=== PATIENT | female | born 1970 | race Two or more races ===

== ENCOUNTER 2017-08-24 10:37 | Emergency (ER) | payer MEDICAID ==
[~2017-08-24] VITALS: Ht 165.1 cm; Wt 68.0 kg
[2017-08-24 11:45] VITALS: BP 118/89
[2017-08-24] MEDS ORDERED: KETOROLAC TROMETH 60MG/2ML VIAL IM ONE (12:30)
[2017-08-24] MEDS ORDERED: ACETAMINOPHEN 325 MG TAB PO ONE (12:30)
== END 2017-08-24 14:03 | disposition home or self-care (01) ==
LOC: ER 10:37
DX: R51 Headache (principal); R05 Cough; F17.210 Nicotine dependence, cigarettes, uncomplicated; R20.0 Anesthesia of skin; Z98.890 Other specified postprocedural states
CPT/HCPCS: 70450; 71046; 96372; 99284; J1885

== ENCOUNTER 2018-05-17 14:05 | Inpatient (IN) | payer MEDICAID ==
[~2018-05-17] VITALS: Ht 165.1 cm; Wt 79.2 kg
[2018-05-17] MEDS ORDERED: SODIUM CHLORIDE 0.9% 1,000 ML IVB ONE (14:10)
[2018-05-17] MEDS ORDERED: LORazepam 2MG/ML-1ML VIAL IV ONE ×2 (14:15→18:15)
[2018-05-17 14:26] LABS: Basophils # (auto) 0 uL; Basophils % (auto) 0.4 % (0.0-2.0); Eosinophils # (auto) 0.2 uL; Eosinophils % (auto) 3.2 % (0.0-7.0); Hematocrit 37.7 % (36.0-46.0); Hemoglobin 12.9 g/dL (12.2-16.2); Lymphocytes # (auto) 2.4 uL; Lymphocytes % (auto) 36.9 % (10.0-50.0); Mean Corpuscular Hemoglobin 33.1 pg (28.0-32.0); Mean Corpuscular Hgb Conc. 34.3 g/dL (32.0-36.0); Mean Corpuscular Volume 96.7 fL (80.0-100.0); Monocytes # (auto) 0.4 uL; Monocytes % (auto) 5.8 % (0.0-12.0); Neutrophils # (auto) 3.4 uL; Neutrophils % (auto) 53.7 % (37.0-80.0); Nucleated Red Blood Cells % 0.2 %; Platelet Count (auto) 213 10^3/uL (140-450); Red Cell Distribution Width 13.8 % (11.8-14.3); White Blood Cell 6.4 10^3/uL (4.4-10.8)
[2018-05-17 14:44] LABS: Alanine Aminotransferase 23 U/L (13-56); Albumin 3.5 g/dL (3.4-5.0); Alkaline Phosphatase 87 U/L (45-117); Anion Gap 4 (5-15); Aspartate Aminotransferase 8 U/L (15-37); Bilirubin, Total 0.3 mg/dL (0.2-1.0); Blood Alcohol < 3.0 mg/dL (0-5); Blood Urea Nitrogen 21 mg/dL (7-18); Calcium 8.3 mg/dL (8.5-10.1); Carbon Dioxide 24 mmol/L (21-32); Chloride 113 mmol/L (98-107); GFR African American 93 mL/min; GFR Non-African American 77 mL/min; Glucose 86 mg/dL (74-106); Potassium 3.7 mmol/L (3.5-5.1); Sodium 141 mmol/L (136-145)
[2018-05-17] MEDS ORDERED: HYDROcodone-ACET 10/325MG TAB PO ONE (17:15)
[2018-05-17] MEDS ORDERED: HYDROcodone-ACET 5/325MG TAB PO PRN ×2 (17:45→18:30)
[2018-05-17] MEDS: METHYLPREDNISOLONE 4 MG TAB PO SCH ×2 (18:00→23:28)
[2018-05-17] MEDS ORDERED: MORPHINE SULFATE 4 MG/ML SYR/VIAL IV PRN (18:00)
[2018-05-17] MEDS ORDERED: TEMAZEPAM 15 MG CAP PO PRN (18:00)
[2018-05-17] MEDS ORDERED: NITROGLYCERIN 0.4 MG SL TAB SL PRN (18:00)
[2018-05-17] MEDS ORDERED: ONDANSETRON HCL 4 MG/2 ML VIAL IV PRN (18:00)
[2018-05-17] MEDS ORDERED: guaiFENesin-DM 100/10mg/5ml SYR PO PRN (18:00)
[2018-05-17] MEDS ORDERED: traMADol HCL 50 MG TAB PO PRN ×2 (18:00→18:30)
[2018-05-17] MEDS ORDERED: DOCUSATE SOD 100 MG CAP PO PRN (18:00)
[2018-05-17] MEDS ORDERED: cloNIDine HCL 0.1 MG TAB PO PRN (18:00)
[2018-05-17] MEDS ORDERED: LORazepam 2MG/ML-1ML VIAL ONE (18:08)
[2018-05-17] MEDS: MORPHINE SULFATE 4 MG/ML SYR/VIAL IV PRN (18:36)
[2018-05-17 19:17] LABS: Urine Bacteria FEW /hpf (None Seen); Urine Blood Negative /uL (Negative); Urine Mucus FEW (None Seen); Urine Specific Gravity 1.014 (1.001-1.035); Urine WBC 35 /hpf (0 - 5)
[2018-05-17 19:32] LABS: Alcohol, Urine < 3.0 mg/dL (0-5); Amphetamine Screen, Urine NEGATIVE (NEGATIVE); Barbiturate Scree,Urine NEGATIVE (NEGATIVE); Benzodiazephine Screen, Urine POSITIVE (NEGATIVE); Cannabinoid Screen, Urine POSITIVE (NEGATIVE); Cocaine Screen, Urine NEGATIVE (NEGATIVE); Opiate Scree,Urine POSITIVE (NEGATIVE); Phencyclidine Screen, Urine NEGATIVE (NEGATIVE)
[2018-05-17 21:04] VITALS: BP 118/78
[2018-05-17 22:00] VITALS: BP 118/79
[2018-05-17] MEDS: FLUTICASONE PROP NASAL SPR 0.05 % (50MCG) 16GM EACHNOSTRI SCH (22:00)
[2018-05-17] MEDS: NITROFURANTOIN (MONO) 100 mg CAP PO SCH (23:14)
[2018-05-17] MEDS: LEVETIRACETAM 500 MG TAB PO SCH (23:14)
[2018-05-17] MEDS: TOPIRAMATE 25 MG TAB PO SCH (23:14)
[2018-05-17] MEDS: FAMOTIDINE 20 MG TAB PO SCH (23:15)
[2018-05-17] MEDS: SODIUM CHLOR 0.9% PF (SALINE LOCK) 10ML VIAL/SYR IV SCH (23:21)
[2018-05-17] MEDS ORDERED: QUEtiapine FUMARATE 100 MG TAB PO ONE (23:30)
[2018-05-18] MEDS: LORazepam 2MG/ML-1ML VIAL IV PRN ×2 (00:27→13:12)
[2018-05-18] MEDS: ZOLPIDEM TARTRATE 5 MG TAB PO PRN ×2 (00:59→21:39)
[2018-05-18] MEDS ORDERED: KEP500T PO (04:28)
[2018-05-18] MEDS ORDERED: HYDR-531 PO (04:28)
[2018-05-18] MEDS ORDERED: ALPR1TAB7 PO (04:28)
[2018-05-18] MEDS ORDERED: TIZA4TAB9 PO (04:28)
[2018-05-18] MEDS ORDERED: QUET50TA PO (04:28)
[2018-05-18] MEDS ORDERED: FLUO-125 PO (04:28)
[2018-05-18] MEDS ORDERED: TOPI25CA5 PO (04:28)
[2018-05-18] MEDS ORDERED: ZOLP10TA6 PO (04:28)
[2018-05-18] MEDS ORDERED: CLON1TAB4 PO (04:28)
[2018-05-18 05:17] VITALS: BP 150/83
[2018-05-18] MEDS: METHYLPREDNISOLONE 4 MG TAB PO SCH ×4 (06:00→23:40)
[2018-05-18] MEDS: SODIUM CHLOR 0.9% PF (SALINE LOCK) 10ML VIAL/SYR IV SCH ×3 (06:00→22:20)
[2018-05-18 07:08] LABS: Basophils # (auto) 0 uL; Basophils % (auto) 0.7 % (0.0-2.0); Eosinophils # (auto) 0.2 uL; Eosinophils % (auto) 3.7 % (0.0-7.0); Lymphocytes # (auto) 2.2 uL; Lymphocytes % (auto) 41.7 % (10.0-50.0); Mean Corpuscular Hemoglobin 32.6 pg (28.0-32.0); Mean Corpuscular Hgb Conc. 34.2 g/dL (32.0-36.0); Mean Corpuscular Volume 95.3 fL (80.0-100.0); Monocytes # (auto) 0.4 uL; Monocytes % (auto) 7.1 % (0.0-12.0); Neutrophils # (auto) 2.5 uL; Neutrophils % (auto) 46.8 % (37.0-80.0); Nucleated Red Blood Cells % 0.1 %; Platelet Count (auto) 216 10^3/uL (140-450); Red Blood Cells 3.99 10^6/uL (4.0-5.20); Red Cell Distribution Width 13.5 % (11.8-14.3); White Blood Cell 5.3 10^3/uL (4.4-10.8)
[2018-05-18 07:29] LABS: Albumin 3.5 g/dL (3.4-5.0); BUN/Creatinine Ratio 17.9; Calcium 8.4 mg/dL (8.5-10.1); Potassium 3.9 mmol/L (3.5-5.1)
[2018-05-18 07:31] LABS: Bilirubin, Total 0.2 mg/dL (0.2-1.0); Total Protein 7.2 g/dL (6.4-8.2)
[2018-05-18 08:00] VITALS: BP 136/85
[2018-05-18] MEDS: NITROFURANTOIN (MONO) 100 mg CAP PO SCH ×2 (09:21→20:38)
[2018-05-18] MEDS: FAMOTIDINE 20 MG TAB PO SCH ×2 (09:23→20:38)
[2018-05-18] MEDS: MULTIPLE VITAMIN TAB PO SCH (09:23)
[2018-05-18] MEDS: AZITHROMYCIN 250 MG TAB PO SCH (09:24)
[2018-05-18] MEDS: LEVETIRACETAM 500 MG TAB PO SCH ×2 (09:25→20:38)
[2018-05-18] MEDS: QUEtiapine FUMARATE 100 MG TAB PO SCH ×2 (09:25→20:39)
[2018-05-18] MEDS: CYANOCOBALAMIN 500 MCG TAB PO SCH (09:27)
[2018-05-18] MEDS: TOPIRAMATE 25 MG TAB PO SCH ×2 (09:27→20:38)
[2018-05-18] MEDS: FLUTICASONE PROP NASAL SPR 0.05 % (50MCG) 16GM EACHNOSTRI SCH ×2 (10:00→22:20)
[2018-05-18] MEDS: HYDROcodone-ACET 10/325MG TAB PO PRN ×2 (11:46→22:20)
[2018-05-18 12:42] VITALS: BP 137/98
[2018-05-18] MEDS: MORPHINE SULFATE 4 MG/ML SYR/VIAL IV PRN (16:14)
[2018-05-18 17:17] VITALS: BP 124/81
[2018-05-18] MEDS: NICOTINE 14 MG/24HR TOPICAL PATCH TD SCH (17:38)
[2018-05-18] MEDS: LORazepam 0.5 MG TAB PO PRN (18:42)
[2018-05-18 22:00] VITALS: BP 132/88
[2018-05-19] MEDS: ACETAMINOPHEN 325 MG TAB PO PRN ×2 (00:52→05:20)
[2018-05-19] MEDS: LORazepam 0.5 MG TAB PO PRN ×3 (02:24→20:45)
[2018-05-19] MEDS: MORPHINE SULFATE 4 MG/ML SYR/VIAL IV PRN ×3 (02:24→17:52)
[2018-05-19] MEDS: HYDROcodone-ACET 10/325MG TAB PO PRN ×2 (04:33→12:49)
[2018-05-19] MEDS: METHYLPREDNISOLONE 4 MG TAB PO SCH ×3 (05:37→17:51)
[2018-05-19] MEDS: SODIUM CHLOR 0.9% PF (SALINE LOCK) 10ML VIAL/SYR IV SCH ×3 (05:38→21:21)
[2018-05-19 08:00] VITALS: BP 120/87
[2018-05-19] MEDS: FLUTICASONE PROP NASAL SPR 0.05 % (50MCG) 16GM EACHNOSTRI SCH ×2 (09:42→21:21)
[2018-05-19] MEDS: FAMOTIDINE 20 MG TAB PO SCH ×2 (09:43→21:21)
[2018-05-19] MEDS: MULTIPLE VITAMIN TAB PO SCH (09:43)
[2018-05-19] MEDS: QUEtiapine FUMARATE 100 MG TAB PO SCH ×2 (09:43→21:22)
[2018-05-19] MEDS: NICOTINE 14 MG/24HR TOPICAL PATCH TD SCH (09:43)
[2018-05-19] MEDS: LEVETIRACETAM 500 MG TAB PO SCH ×2 (09:43→21:21)
[2018-05-19] MEDS: NITROFURANTOIN (MONO) 100 mg CAP PO SCH ×2 (09:44→21:21)
[2018-05-19] MEDS: AZITHROMYCIN 250 MG TAB PO SCH (09:44)
[2018-05-19] MEDS: CYANOCOBALAMIN 500 MCG TAB PO SCH (09:44)
[2018-05-19] MEDS: TOPIRAMATE 25 MG TAB PO SCH ×2 (09:44→21:22)
[2018-05-19] MEDS: LORazepam 2MG/ML-1ML VIAL IV PRN (11:18)
[2018-05-19 12:00] VITALS: BP 126/96
[2018-05-19 16:00] VITALS: BP 114/73
[2018-05-19] MEDS: ZOLPIDEM TARTRATE 5 MG TAB PO PRN (21:22)
[2018-05-19 22:00] VITALS: BP 117/72
[2018-05-20] MEDS: MORPHINE SULFATE 4 MG/ML SYR/VIAL IV PRN (00:06)
[2018-05-20] MEDS: METHYLPREDNISOLONE 4 MG TAB PO SCH ×3 (00:06→12:00)
[2018-05-20 05:00] VITALS: BP 88/52
[2018-05-20] MEDS: SODIUM CHLOR 0.9% PF (SALINE LOCK) 10ML VIAL/SYR IV SCH ×2 (05:51→14:00)
[2018-05-20 09:00] VITALS: BP 116/61
[2018-05-20] MEDS: QUEtiapine FUMARATE 100 MG TAB PO SCH (10:00)
[2018-05-20] MEDS: AZITHROMYCIN 250 MG TAB PO SCH (10:00)
[2018-05-20] MEDS: MULTIPLE VITAMIN TAB PO SCH (10:00)
[2018-05-20] MEDS: CYANOCOBALAMIN 500 MCG TAB PO SCH (10:00)
[2018-05-20] MEDS: LEVETIRACETAM 500 MG TAB PO SCH (10:00)
[2018-05-20] MEDS: TOPIRAMATE 25 MG TAB PO SCH (10:00)
[2018-05-20] MEDS: FAMOTIDINE 20 MG TAB PO SCH (10:00)
[2018-05-20] MEDS: NITROFURANTOIN (MONO) 100 mg CAP PO SCH (10:00)
[2018-05-20] MEDS: NICOTINE 14 MG/24HR TOPICAL PATCH TD SCH (10:00)
[2018-05-20] MEDS: FLUTICASONE PROP NASAL SPR 0.05 % (50MCG) 16GM EACHNOSTRI SCH (10:00)
[2018-05-20] MEDS: HYDROcodone-ACET 10/325MG TAB PO PRN (11:10)
[2018-05-20 12:30] VITALS: BP 116/61
[2018-05-20 14:23] VITALS: BP 127/76
[2018-05-20] MEDS: LORazepam 0.5 MG TAB PO PRN (14:27)
== END 2018-05-20 15:00 | disposition home or self-care (01) | DRG 53 ==
LOC: EDBD 14:05 → ER 14:08 → TELE 14:09 → TELE-WESTW 20:40
PROVIDERS: ADMIT Internal Medicine; ATTEND Internal Medicine
DX: G40.909 Epilepsy, unspecified, not intractable, without status epilepticus (principal); I95.9 Hypotension, unspecified; E83.51 Hypocalcemia; N18.2 Chronic kidney disease, stage 2 (mild); F32.9 Major depressive disorder, single episode, unspecified; F41.1 Generalized anxiety disorder; I12.9 Hypertensive chronic kidney disease with stage 1 through stage 4 chronic kidney disease, or unspecified chronic kidney disease; R51 Headache; F12.90 Cannabis use, unspecified, uncomplicated; F17.210 Nicotine dependence, cigarettes, uncomplicated; Z81.8 Family history of other mental and behavioral disorders; Z82.5 Family history of asthma and other chronic lower respiratory diseases; Z86.73 Personal history of transient ischemic attack (TIA), and cerebral infarction without residual deficits; Z98.2 Presence of cerebrospinal fluid drainage device
CPT/HCPCS: 36415; 70250; 70360; 70450; 71045; 74018; 80053; 80307; 80320; 81001; 85025; 87081; 95819; 96361; 96374; 96375; A6257; J2405

== ENCOUNTER 2019-02-26 23:19 | Emergency (ER) | payer MEDICAID ==
[~2019-02-26] VITALS: Ht 157.5 cm; Wt 63.5 kg
[~2019-02-26 23:19] MED LIST: ALPR1TAB7 PO; CLON1TAB4 PO; FLUO-125 PO; HYDR-531 PO; KEP500T PO; QUET50TA PO; TIZA4TAB9 PO; TOPI25CA5 PO; ZOLP10TA6 PO
[2019-02-27 00:30] LABS: Basophils # (auto) 0 uL; Basophils % (auto) 0.6 % (0.0-2.0); Eosinophils # (auto) 0.1 uL; Eosinophils % (auto) 1.6 % (0.0-7.0); Hematocrit 43.4 % (36.0-46.0); Hemoglobin 13.3 g/dL (12.2-16.2); Lymphocytes # (auto) 2.3 uL; Lymphocytes % (auto) 36.9 % (10.0-50.0); Mean Corpuscular Hemoglobin 32.7 pg (28.0-32.0); Mean Corpuscular Hgb Conc. 30.6 g/dL (32.0-36.0); Mean Corpuscular Volume 107.1 fL (80.0-100.0); Monocytes # (auto) 0.4 uL; Monocytes % (auto) 7.2 % (0.0-12.0); Neutrophils # (auto) 3.3 uL; Neutrophils % (auto) 53.7 % (37.0-80.0); Nucleated Red Blood Cells % 0.1 %; Platelet Count (auto) 263 10^3/uL (140-450); Red Blood Cells 4.05 10^6/uL (4.0-5.20); Red Cell Distribution Width 15.3 % (11.8-14.3); White Blood Cell 6.2 10^3/uL (4.4-10.8)
[2019-02-27 07:31] LABS: Urine WBC None Seen /hpf (0 - 5)
[2019-02-27] MEDS ORDERED: SODIUM CHLORIDE 0.9% 500 ML IV ONE (07:40)
[2019-02-27] MEDS ORDERED: SODIUM CHLORIDE 0.9% 1,000 ML IV ONE (07:40)
[2019-02-27] MEDS ORDERED: LORazepam 2MG/ML-1ML VIAL IV ONE (07:45)
[2019-02-27] MEDS ORDERED: OLANZapine 5 MG TAB PO ONE (07:45)
[2019-02-27 07:46] LABS: Urine Bacteria FEW /hpf (None Seen); Urine Blood Negative /uL (Negative); Urine Specific Gravity 1.001 (1.001-1.035)
[2019-02-27] MEDS ORDERED: LEVETIRACETAM 500 MG TAB PO ONE (08:30)
[2019-02-27 08:37] LABS: Alcohol, Urine < 3.0 mg/dL (0-5); Amphetamine Screen, Urine NEGATIVE (NEGATIVE); Barbiturate Scree,Urine NEGATIVE (NEGATIVE); Benzodiazephine Screen, Urine POSITIVE (NEGATIVE); Cannabinoid Screen, Urine POSITIVE (NEGATIVE); Cocaine Screen, Urine NEGATIVE (NEGATIVE); Opiate Scree,Urine NEGATIVE (NEGATIVE); Phencyclidine Screen, Urine NEGATIVE (NEGATIVE)
[2019-02-27 09:01] LABS: Albumin 3.5 g/dL (3.4-5.0); BUN/Creatinine Ratio 18.2; Calcium 8.5 mg/dL (8.5-10.1); Potassium 3.5 mmol/L (3.5-5.1)
[2019-02-27 09:03] LABS: Bilirubin, Total 0.3 mg/dL (0.2-1.0); Total Protein 7.1 g/dL (6.4-8.2)
[2019-02-27 10:11] VITALS: BP 123/88
== END 2019-02-27 11:01 | disposition home or self-care (01) ==
LOC: EDBD 23:19 → ER 23:23
DX: F41.9 Anxiety disorder, unspecified (principal); G40.909 Epilepsy, unspecified, not intractable, without status epilepticus; F12.90 Cannabis use, unspecified, uncomplicated; R07.9 Chest pain, unspecified; Z98.2 Presence of cerebrospinal fluid drainage device; Z79.899 Other long term (current) drug therapy
CPT/HCPCS: 36415; 71046; 80053; 80307; 81001; 81025; 83735; 85025; 96361; 96374; 99284; J2060; J7030; J7040

== ENCOUNTER 2019-06-21 22:24 | Emergency (ER) | payer MEDICAID ==
[~2019-06-21] VITALS: Ht 157.5 cm; Wt 68.0 kg
[~2019-06-21 22:24] MED LIST changes: +CLON1TAB10 PO; -CLON1TAB4 PO
[2019-06-21] MEDS ORDERED: SODIUM CHLORIDE 0.9% 500 ML IV ONE (23:30)
[2019-06-21] MEDS ORDERED: HYDROmorphone HCL 2 MG/ML VL IV ONE (23:30)
[2019-06-21] MEDS ORDERED: ONDANSETRON HCL 4 MG/2 ML VIAL IV ONE (23:30)
[2019-06-22 03:38] VITALS: BP 113/55
== END 2019-06-22 05:10 | disposition home or self-care (01) ==
LOC: EDBD 22:24 → EDUNIT# 22:24 → ER 22:24
DX: S70.02XA Contusion of left hip, initial encounter (principal); W01.0XXA Fall on same level from slipping, tripping and stumbling without subsequent striking against object, initial encounter; Y93.89 Activity, other specified; Y99.8 Other external cause status; Y92.89 Other specified places as the place of occurrence of the external cause
CPT/HCPCS: 73502; 96374; 96375; 99283; J1170; J2405

== ENCOUNTER 2021-01-20 16:00 | Emergency (ER) | payer MEDICAID ==
[~2021-01-20] VITALS: Ht 165.1 cm; Wt 59.0 kg
[2021-01-20] MEDS ORDERED: HYDROcodone-ACET 5/325MG TAB PO ONE (17:00)
[2021-01-20] MEDS ORDERED: ONDANSETRON ODT 4 MG TAB PO ONE (17:00)
[2021-01-20 17:22] LABS: Basophils # (auto) 0 10 ^3/uL (0-0.2); Basophils % (auto) 0.2 % (0.0-2.0); Eosinophils # (auto) 0 10 ^3/uL (0-0.8); Eosinophils % (auto) 0.3 % (0.0-7.0); Hematocrit 41.6 % (36.0-46.0); Hemoglobin 14.2 g/dL (12.2-16.2); Lymphocytes # (auto) 1.6 10 ^3/uL (0.4-5.4); Lymphocytes % (auto) 19.4 % (10.0-50.0); Mean Corpuscular Hemoglobin 32.9 pg (28.0-32.0); Mean Corpuscular Hgb Conc. 34.3 g/dL (32.0-36.0); Mean Corpuscular Volume 95.9 fL (80.0-100.0); Monocytes # (auto) 0.4 10 ^3/uL (0-1.3); Monocytes % (auto) 4.6 % (0.0-12.0); Neutrophils # (auto) 6.1 10 ^3/uL (1.6-8.6); Neutrophils % (auto) 75.5 % (37.0-80.0); Platelet Count (auto) 253 10^3/uL (140-450); Red Blood Cells 4.33 10^6/uL (4.0-5.20); Red Cell Distribution Width 13.9 % (11.8-14.3); White Blood Cell 8.1 10^3/uL (4.4-10.8)
[2021-01-20 17:43] LABS: Albumin 4.1 g/dL (3.4-5.0); BUN/Creatinine Ratio 19.5; Potassium 3.6 mmol/L (3.5-5.1)
[2021-01-20 17:45] LABS: Bilirubin, Total 0.4 mg/dL (0.2-1.0)
[2021-01-20 21:10] VITALS: BP 130/80
== END 2021-01-20 22:20 | disposition home or self-care (01) ==
LOC: ER 16:00 → EDBD 16:00 → ER 22:20
DX: R51.9 Headache, unspecified (principal); F17.210 Nicotine dependence, cigarettes, uncomplicated; Z86.73 Personal history of transient ischemic attack (TIA), and cerebral infarction without residual deficits
CPT/HCPCS: 36415; 70450; 80053; 85025; 99284; Q0162

== ENCOUNTER 2021-03-12 22:10 | Emergency (ER) | payer MEDICAID ==
[~2021-03-12] VITALS: Ht 165.1 cm; Wt 59.0 kg
[2021-03-12 22:12] VITALS: BP 124/83
[2021-03-13 01:20] LABS: Urine Bacteria FEW /hpf (None Seen); Urine Blood Negative /uL (Negative); Urine Mucus FEW (None Seen); Urine Specific Gravity 1.012 (1.001-1.035); Urine WBC 25 /hpf (0 - 5)
[2021-03-13] MEDS ORDERED: cefTRIAXone SOD 1,000 MG VL IM ONE (02:15)
[2021-03-13] MEDS ORDERED: KETOROLAC TROMETH 60MG/2ML VIAL IM ONE (02:15)
== END 2021-03-13 03:01 | disposition home or self-care (01) ==
LOC: ER 22:12
DX: N39.0 Urinary tract infection, site not specified (principal); R51.9 Headache, unspecified; F17.210 Nicotine dependence, cigarettes, uncomplicated; Z79.899 Other long term (current) drug therapy
CPT/HCPCS: 81001; 96372; 99284; J0696; J1885